=== PATIENT | female | born 1950 | race Caucasian/White ===

== ENCOUNTER 2024-09-20 09:42 | Day surgery (SDC) | payer MEDICARE, OTHER, SELFPAY ==
[2024-09-20 09:35] VITALS: BP 113/80
[2024-09-20 09:44] VITALS: BMI 33.9
[2024-09-20 09:45] VITALS: BMI 33.9
[2024-09-20 09:53] LABS: Glucose - Point of Care 98 mg/dl (70-99)
[2024-09-20 12:10] VITALS: BP 123/66
[2024-09-20 12:15] VITALS: BP 131/67
[2024-09-20 12:30] VITALS: BP 102/88
[2024-09-20 12:40] VITALS: BP 131/63
== END 2024-09-20 12:59 | disposition home or self-care (01) ==
LOC: SDS 09:42
PROVIDERS: ATTENDING PHYSICIAN Internal Medicine Gastroenterology; FAMILY PHYSICIAN Family Medicine
DX: K86.2 Cyst of pancreas (principal); K86.89 Other specified diseases of pancreas
CPT/HCPCS: 43242; 88173; 88305; 82962